=== PATIENT | female | born 1940 | race Two or more races ===

== ENCOUNTER 2024-08-02 14:13 | Emergency (ER) | payer MEDICARE ==
[~2024-08-02] VITALS: Ht 154.9 cm; Wt 35.5 kg
[2024-08-02 14:24] VITALS: BP 148/70; PULSE 85; RESP 16; TEMP 98.5; O2SAT 97
== END 2024-08-02 16:04 | disposition left against medical advice (07) ==
LOC: ER 14:14
DX: Z04.3 Encounter for examination and observation following other accident (principal); Z53.21 Procedure and treatment not carried out due to patient leaving prior to being seen by health care provider; W19.XXXA Unspecified fall, initial encounter; Y93.89 Activity, other specified; Y92.89 Other specified places as the place of occurrence of the external cause; Y99.8 Other external cause status
CPT/HCPCS: A6449